=== PATIENT | female | born 1990 | race African-American/Black ===

== ENCOUNTER 2017-07-07 17:02 | Observation (INO) | payer MEDICAID ==
[~2017-07-07] VITALS: Ht 162.6 cm; Wt 83.5 kg
[2017-07-07 18:37] VITALS: BP 106/61
[2017-07-07] MEDS ORDERED: KETOROLAC 30MG/ML VIAL IV NR (19:00)
[2017-07-07] MEDS ORDERED: AZITHROMYCIN 500 MG in DEXT 5% WATER 250 ML IV NR (19:00)
[2017-07-07] MEDS: LACTATED RINGERS 1,000 ML IV SCH (19:01)
[2017-07-07 19:02] LABS: BASOPHILS % 0.8 % (0.0-2.0); EOSINOPHILS % 0.4 % (0.0-5.0); HEMATOCRIT. 30.8 % (36.0-48.0); HEMOGLOBIN. 10.7 g/dL (12.0-16.0); LYMPHOCYTES % 13.4 % (20.0-50.0); MEAN CORPUSCULAR HEMOGLOBIN 29.7 pg (28.0-32.0); MEAN CORPUSCULAR VOLUME 85.6 fL (81.0-99.0); MEAN PLATELET VOLUME 9.2 fl (7.4-10.4); NEUTROPHILS % 79.4 % (40.0-76.0); PLATELET 192 x1000/uL (130-400); RED BLOOD CELL COUNT 3.59 mill/uL (4.2-5.4); RED CELL DISTRIBUTION WIDTH 14.5 % (11.6-14.6)
[2017-07-07 19:20] LABS: T4 FREE 0.95 ng/dL (0.76-1.46)
[2017-07-07 19:22] LABS: CARBON DIOXIDE 25 mEq/L (21-32); CHLORIDE 103 mEq/L (98-107)
[2017-07-07] MEDS: INDOMETHACIN 25MG CAPSULE PO SCH (20:16)
[2017-07-07] MEDS: CLINDAMYCIN 900 MG in DEXTROSE 5% WATER 50 ML IV SCH (20:19)
[2017-07-07] MEDS ORDERED: OCD PO (20:58)
[2017-07-07] MEDS ORDERED: PREN-176 PO (20:58)
[2017-07-07] MEDS: FAMOTIDINE 20MG/2ML VIAL IV SCH (21:07)
[2017-07-07] MEDS ORDERED: ERGO400C PO (21:21)
[2017-07-07] MEDS ORDERED: LEVO112T7 PO (21:21)
[2017-07-07 21:30] LABS: CLARITY URINE CLEAR (CLEAR); COLOR URINE DARK YELLOW (YELLOW); KETONES URINE 1+ (NEGATIVE); LEUKOCYTE ESTERASE URINE 1+ (NEGATIVE); NITRITE URINE NEGATIVE (NEGATIVE); OCCULT BLOOD URINE NEGATIVE (NEGATIVE); PH URINE 6.5 (4.5-8.0); PROTEIN URINE TRACE (NEGATIVE)
[2017-07-08] MEDS: INDOMETHACIN 25MG CAPSULE PO SCH ×4 (03:18→22:38)
[2017-07-08] MEDS: CLINDAMYCIN 900 MG in DEXTROSE 5% WATER 50 ML IV SCH ×3 (04:18→20:03)
[2017-07-08 06:08] LABS: PARTIAL THROMBOPLASTIN TIME 34.9 sec (23.4-31.0); PROTHROMBIN TIME 10.7 sec (9.4-11.6)
[2017-07-08] MEDS: LACTATED RINGERS 1,000 ML IV SCH ×2 (09:10→14:38)
[2017-07-08] MEDS ORDERED: FENTANYL CITRATE/PF 50MCG/ML 2ML VIAL ONE (13:17)
[2017-07-08] MEDS ORDERED: KETOROLAC 30MG/ML VIAL ONE (13:42)
[2017-07-08] MEDS ORDERED: ONDANSETRON HCL 4MG/2ML VIAL IV PRN (13:45)
[2017-07-08] MEDS ORDERED: FENTANYL CITRATE/PF 50MCG/ML 2ML VIAL IV PRN (13:45)
[2017-07-08] MEDS ORDERED: ONDANSETRON HCL 4MG/2ML VIAL ONE (13:54)
[2017-07-08] MEDS ORDERED: METOCLOPRAMIDE HCL 10MG/2ML VIAL ONE (13:54)
[2017-07-08] MEDS ORDERED: KETOROLAC 30MG/ML VIAL IV PRN (14:00)
[2017-07-08] MEDS ORDERED: SODIUM CHLORIDE 0.9% 100 ML IV NR (15:30)
[2017-07-08] MEDS ORDERED: MAGNESIUM 4 G PREMIX 100 ML IV NR (15:30)
[2017-07-08] MEDS: MAGNESIUM 20 G PREMIX (L & D) 500 ML IV SCH (16:35)
[2017-07-08] MEDS ORDERED: AZITHROMYCIN 250 MG in SODIUM CHLORIDE 0.9% 100 ML IV SCH (19:00)
[2017-07-08] MEDS: FAMOTIDINE 20MG/2ML VIAL IV SCH (22:39)
[2017-07-09 03:52] VITALS: BP 96/58
[2017-07-09] MEDS: MAGNESIUM 20 G PREMIX (L & D) 500 ML IV SCH (03:52)
[2017-07-09] MEDS: CLINDAMYCIN 900 MG in DEXTROSE 5% WATER 50 ML IV SCH (04:01)
[2017-07-09] MEDS: LACTATED RINGERS 1,000 ML IV SCH (06:41)
[2017-07-09] MEDS: INDOMETHACIN 25MG CAPSULE PO SCH (08:29)
[2017-07-09] MEDS ORDERED: MAGNESIUM OXIDE 400MG TABLET PO SCH (09:00)
== END 2017-07-09 10:10 | disposition home or self-care (01) ==
LOC: L&D 17:02
PROVIDERS: ADMIT Acupuncturist; ATTEND Acupuncturist
DX: O34.32 Maternal care for cervical incompetence, second trimester (principal); O60.02 Preterm labor without delivery, second trimester; Z3A.20 20 weeks gestation of pregnancy; Z83.3 Family history of diabetes mellitus
CPT/HCPCS: 36415; 59320; 76817; 76830; 80053; 81001; 83735; 84439; 84443; 85025; 85384; 85610; 85730; 86850; 86900; 86901; 87040; 87070; 96365; 96366; 96367; 96368; 96375; 96376; G0378; J0456; J1885; J2405; J2765; J3010; J3475; J3490; J7030; J7120; J7050; J7060

== ENCOUNTER 2019-04-09 01:07 | Emergency (ER) | payer MEDICAID ==
[~2019-04-09] VITALS: Ht 162.6 cm; Wt 64.9 kg
[~2019-04-09 01:07] MED LIST: ERGO400C PO; LEVO112T7 PO; OCD PO; PREN-176 PO
[2019-04-09 02:52] LABS: CHLORIDE 107 mEq/L (98-107)
[2019-04-09 03:00] LABS: BASOPHILS % 0.2 % (0.0-2.0); EOSINOPHILS % 1.2 % (0.0-5.0); HEMATOCRIT. 34.6 % (36.0-48.0); HEMOGLOBIN. 11.5 g/dL (12.0-16.0); LYMPHOCYTES % 32.9 % (20.0-50.0); MEAN CORPUSCULAR HEMOGLOBIN 26.4 pg (28.0-32.0); MEAN CORPUSCULAR VOLUME 79.5 fL (81.0-99.0); MEAN PLATELET VOLUME 9.8 fl (7.4-10.4); MONOCYTES % 9.5 % (2.0-8.0); NEUTROPHILS % 56.2 % (40.0-76.0); PLATELET 186 x1000/uL (130-400); RED BLOOD CELL COUNT 4.36 mill/uL (4.2-5.4)
[2019-04-09 03:17] LABS: BG CARBOXYHEMOGLOBIN 0.6 % (0.5-1.5); BG DEOXYHEMOGLOBIN 1.7 % (0.0-5.0); BG FRACTION INSPIRED OXYGEN 21; BG HCO3 ACT 23.4 mmol/L (22.0-26.0); BG METHEMOGLOBIN 0.1 % (0.0-1.5); BG OXYGEN SATURATION 98.3 % (92.0-98.5); BG OXYHEMOGLOBIN 97.6 % (94.0-97.0); BG PCO2 37.8 mmHg (35.0-45.0); BG PH 7.409 (7.350-7.450); BG PO2 130.8 mmHg (75.0-100.0); BG SAMPLE SITE RIGHT RADIAL; BG TOTAL HEMOGLOBIN 12.3 g/dL (12.0-18.0); BG VENT MODE ROOM AIR
[2019-04-09 04:48] VITALS: BP 113/65
== END 2019-04-09 04:55 | disposition home or self-care (01) ==
LOC: ER 01:07
DX: Z77.098 Contact with and (suspected) exposure to other hazardous, chiefly nonmedicinal, chemicals (principal); R06.00 Dyspnea, unspecified; E05.90 Thyrotoxicosis, unspecified without thyrotoxic crisis or storm; F17.210 Nicotine dependence, cigarettes, uncomplicated; Z88.6 Allergy status to analgesic agent; Z91.018 Allergy to other foods
CPT/HCPCS: 36415; 36600; 71045; 81025; 82375; 82805; 84484; 99284

== ENCOUNTER 2020-06-22 08:22 | Emergency (ER) | payer MEDICAID ==
[~2020-06-22] VITALS: Ht 162.6 cm; Wt 60.0 kg
[2020-06-22 08:26] VITALS: BP 150/74
== END 2020-06-22 09:12 | disposition left against medical advice (07) ==
LOC: ER 08:22
DX: R51.9 Headache, unspecified (principal); E05.00 Thyrotoxicosis with diffuse goiter without thyrotoxic crisis or storm; R00.0 Tachycardia, unspecified; Z87.828 Personal history of other (healed) physical injury and trauma; Z53.21 Procedure and treatment not carried out due to patient leaving prior to being seen by health care provider

== ENCOUNTER 2020-10-23 03:26 | Emergency (ER) | payer MEDICAID ==
[~2020-10-23] VITALS: Ht 162.6 cm; Wt 57.0 kg
[2020-10-23 03:34] VITALS: BP 117/75
[2020-10-23] MEDS ORDERED: AZITHROMYCIN 500 MG TABLET PO ONE (05:00)
[2020-10-23] MEDS ORDERED: GENTAMICIN SULF 40MG/ML 2ML VIAL IM ONE (05:00)
[2020-10-23 05:32] LABS: CLARITY URINE CLEAR (CLEAR); COLOR URINE YELLOW (YELLOW); KETONES URINE NEGATIVE (NEGATIVE); LEUKOCYTE ESTERASE URINE 1+ (NEGATIVE); NITRITE URINE NEGATIVE (NEGATIVE); OCCULT BLOOD URINE NEGATIVE (NEGATIVE); PROTEIN URINE NEGATIVE (NEGATIVE); SPECIFIC GRAVITY URINE 1.026 (1.005-1.030)
== END 2020-10-23 05:48 | disposition left against medical advice (07) ==
LOC: ER 03:26
DX: N39.0 Urinary tract infection, site not specified (principal); E05.90 Thyrotoxicosis, unspecified without thyrotoxic crisis or storm; Z79.899 Other long term (current) drug therapy
CPT/HCPCS: 81003; 81025; 99283; J1580